=== PATIENT | female | born 1995 | race Caucasian/White ===

== ENCOUNTER 2017-06-13 15:27 | Inpatient (IN) | payer BC, OTHER ==
[~2017-06-13] VITALS: Ht 160 cm; Wt 53.1 kg
[2017-06-13] MEDS ORDERED: ONDANSETRON 4 MG/2 ML VIAL IM PRN (16:30)
[2017-06-13] MEDS ORDERED: CLONIDINE HCL 0.1 MG TABLET PO PRN (16:30)
[2017-06-13] MEDS ORDERED: LOPERAMIDE HCL 2 MG CAPSULE PO PRN ×2 (16:30)
[2017-06-13] MEDS ORDERED: MIRALAX 17 GM POWD.PACK PO PRN (16:30)
[2017-06-13] MEDS ORDERED: DICYCLOMINE HCL 20 MG TABLET PO PRN (16:30)
[2017-06-13] MEDS ORDERED: LORAZEPAM 2 MG/1 ML VIAL IM PRN (16:30)
[2017-06-13] MEDS ORDERED: LORAZEPAM 1 MG TABLET PO PRN ×2 (16:30)
[2017-06-13] MEDS ORDERED: ONDANSETRON ODT 4 MG TAB.RAPDIS SL PRN (16:30)
[2017-06-13] MEDS ORDERED: PROMETHAZINE HCL 25 MG TABLET PO PRN (16:30)
[2017-06-13] MEDS ORDERED: MAG HYDROX/AL HYDROX/SIMETH 30 ML LIQUID UDC PO PRN (16:30)
[2017-06-13] MEDS ORDERED: MAGNESIUM HYDROXIDE 30 ML LIQUID UDC PO PRN (16:30)
[2017-06-13] MEDS: NEOMY/BACITRAC/POLYMI OINT 28.35 GM TUBE TOP SCH (17:00)
[2017-06-13 17:43] LABS: *URINE HCG, QUAL NEGATIVE (NEGATIVE)
[2017-06-13 17:57] LABS: *AMPHETAMINE, URINE POSITIVE (NEGATIVE); *BARBITURATE, URINE NEGATIVE (NEGATIVE); *CANNABINOID, URINE POSITIVE (NEGATIVE); *COCCAINE, URINE NEGATIVE (NEGATIVE); *OPIATE, URINE POSITIVE (NEGATIVE); *PHENCYCLIDINE SCREEN,URINE NEGATIVE (NEGATIVE)
[2017-06-13 20:00] VITALS: BP 102/60
[2017-06-13] MEDS: GABAPENTIN 300 MG CAPSULE PO SCH (21:00)
[2017-06-14] VITALS (8 sets, daily range): BP systolic 42–104; BP diastolic 43–64
[2017-06-14] MEDS: ACETAMINOPHEN 325 MG TABLET PO PRN ×2 (04:34→21:44)
[2017-06-14] MEDS: METHOCARBAMOL 750 MG TABLET PO PRN ×2 (04:34→21:44)
[2017-06-14] MEDS: BUPRENORPHINE HCL 2 MG TAB.SUBL SL PRN ×2 (04:34→11:24)
[2017-06-14] MEDS: BUPRENORPHINE HCL 2 MG TAB.SUBL SL SCH ×3 (09:00→21:45)
[2017-06-14] MEDS ORDERED: TUBERCULIN,PURIF.PROT.DERIV. 5 TU/0.1 ML TEST ID ONE (09:00)
[2017-06-14] MEDS: GABAPENTIN 300 MG CAPSULE PO SCH ×3 (09:30→21:44)
[2017-06-14] MEDS: MULTIVITAMINS,THERAPEUTIC TABLET PO SCH (09:30)
[2017-06-14] MEDS: FOLIC ACID 1 MG TABLET PO SCH (09:30)
[2017-06-14] MEDS: THIAMINE HCL 100 MG TABLET PO SCH (09:30)
[2017-06-14] MEDS: NEOMY/BACITRAC/POLYMI OINT 28.35 GM TUBE TOP SCH ×2 (09:37→17:00)
[2017-06-14 09:53] LABS: BASOPHILS % (AUTO) 0.2 % (0.0-2.0); EOSINOPHILS # (AUTO) 0.2 K/uL (0.0-0.7); EOSINOPHILS % (AUTO) 2.3 % (0.0-7.0); HEMATOCRIT 35.4 % (37-47); HEMOGLOBIN 11.9 G/DL (12.0-16.0); LYMPHOCYTES # (AUTO) 1.3 K/UL (0.8-4.8); LYMPHOCYTES % (AUTO) 16.1 % (20.5-74.5); MEAN CORPUSCULAR HEMOGLOBIN 28.1 UUG (27.0-31.0); MEAN CORPUSCULAR HGB CONC 34 g/dL (32.0-37.0); MEAN CORPUSCULAR VOLUME 83.8 FL (81.0-99.0); MONOCYTES # (AUTO) 0.6 K/UL (0.1-1.30); NEUTROPHILS # (AUTO) 5.7 K/UL (1.8-8.9); NEUTROPHILS % (AUTO) 73.4 % (31.5-64.5); PLATELET COUNT (AUTO) 311 K/UL (150-450); RED BLOOD CELL COUNT(AUTO) 4.23 MIL/UL (4.2-5.4); WHITE BLOOD COUNT (AUTO) 7.8 K/UL (4.0-11.2)
[2017-06-14 10:08] LABS: ETHANOL < 3 MG/DL (0-0)
[2017-06-14 10:11] LABS: ALANINE AMINOTRANSFERASE 21 U/L (14-59); ALKALINE PHOSPHATASE 88 U/L (50-136); ASPARTATE AMINOTRANSFERASE 19 U/L (15-37); BILIRUBIN,TOTAL 0.5 mg/dL (0.2-1.0); CARBON DIOXIDE 29 mmol/L (21-32); CHLORIDE 103 mmol/L (98-107); CREATININE 0.8 mg/dL (0.6-1.3); GLUCOSE 122 mg/dL (74-106); MAGNESIUM 1.9 mg/dL (1.8-2.4); TOTAL PROTEIN, SERUM 6.6 g/dL (6.4-8.2); UREA NITROGEN, BLOOD 4 mg/dL (7-18)
[2017-06-14] MEDS: risperiDONE 0.5 MG TABLET PO SCH ×2 (12:40→21:44)
[2017-06-14] MEDS ORDERED: BUPRENORPHINE HCL 2 MG TAB.SUBL SL PRN (18:00)
[2017-06-14] MEDS ORDERED: LORAZEPAM 1 MG TABLET PO PRN (18:00)
[2017-06-14] MEDS: LAMOTRIGINE 25 MG TABLET PO SCH (21:44)
[2017-06-15] VITALS: BP 100/57
[2017-06-15 04:00] VITALS: BP 93/58
[2017-06-15 08:00] VITALS: BP 102/62
[2017-06-15 08:06] LABS: HEPATITIS B SURFACE AG Negative (Negative)
[2017-06-15] MEDS ORDERED: BUPRENORPHINE HCL 2 MG TAB.SUBL SL SCH (09:00)
[2017-06-15] MEDS: risperiDONE 0.5 MG TABLET PO SCH ×2 (09:22→21:49)
[2017-06-15] MEDS: THIAMINE HCL 100 MG TABLET PO SCH (09:22)
[2017-06-15] MEDS: NEOMY/BACITRAC/POLYMI OINT 28.35 GM TUBE TOP SCH ×2 (09:22→16:53)
[2017-06-15] MEDS: MULTIVITAMINS,THERAPEUTIC TABLET PO SCH (09:22)
[2017-06-15] MEDS: FOLIC ACID 1 MG TABLET PO SCH (09:22)
[2017-06-15] MEDS: GABAPENTIN 300 MG CAPSULE PO SCH ×3 (09:22→21:49)
[2017-06-15 12:00] VITALS: BP 109/55
[2017-06-15] MEDS ORDERED: BENZONATATE 100 MG CAPSULE PO PRN (12:45)
[2017-06-15] MEDS ORDERED: BENZOCAINE/MENTH/CETYLPYRD LOZENGE MM PRN (12:45)
[2017-06-15] MEDS: BUPRENORPHINE HCL 2 MG TAB.SUBL SL SCH ×2 (14:33→21:49)
[2017-06-15] MEDS: BENZONATATE 100 MG CAPSULE PO PRN ×2 (15:13→21:49)
[2017-06-15] MEDS: IBUPROFEN 600 MG TABLET PO PRN (15:13)
[2017-06-15 16:00] VITALS: BP 111/54
[2017-06-15 20:00] VITALS: BP 105/58
[2017-06-15] MEDS: diphenhydrAMINE 50 MG CAPSULE PO PRN (21:48)
[2017-06-15] MEDS: LAMOTRIGINE 25 MG TABLET PO SCH (21:49)
[2017-06-15] MEDS: ACETAMINOPHEN 325 MG TABLET PO PRN (21:49)
[2017-06-15] MEDS: LORAZEPAM 1 MG TABLET PO PRN (21:49)
[2017-06-16] VITALS: BP 116/73
[2017-06-16] MEDS: LORAZEPAM 1 MG TABLET PO PRN ×3 (01:38→22:12)
[2017-06-16 04:00] VITALS: BP 112/69
[2017-06-16 08:00] VITALS: BP 114/65
[2017-06-16] MEDS: FOLIC ACID 1 MG TABLET PO SCH (09:15)
[2017-06-16] MEDS: GABAPENTIN 300 MG CAPSULE PO SCH ×3 (09:15→20:25)
[2017-06-16] MEDS: MULTIVITAMINS,THERAPEUTIC TABLET PO SCH (09:15)
[2017-06-16] MEDS: THIAMINE HCL 100 MG TABLET PO SCH (09:15)
[2017-06-16] MEDS: risperiDONE 0.5 MG TABLET PO SCH ×2 (09:15→20:24)
[2017-06-16] MEDS: BUPRENORPHINE HCL 2 MG TAB.SUBL SL SCH ×3 (09:16→20:24)
[2017-06-16] MEDS: NEOMY/BACITRAC/POLYMI OINT 28.35 GM TUBE TOP SCH ×2 (09:16→16:57)
[2017-06-16 12:00] VITALS: BP 124/70
[2017-06-16] MEDS: IBUPROFEN 600 MG TABLET PO PRN ×2 (12:41→22:12)
[2017-06-16] MEDS ORDERED: HYDROXYZINE PAMOATE 25 MG CAPSULE PO PRN (14:30)
[2017-06-16 16:00] VITALS: BP 120/65
[2017-06-16 20:00] VITALS: BP 124/70
[2017-06-16] MEDS: LAMOTRIGINE 25 MG TABLET PO SCH (20:22)
[2017-06-16] MEDS: METHOCARBAMOL 750 MG TABLET PO PRN (20:25)
[2017-06-16] MEDS: CLONIDINE HCL 0.1 MG TABLET PO SCH (20:25)
[2017-06-16] MEDS ORDERED: KETOROLAC TROMETHAMINE 30 MG INJ IM PRN (21:00)
[2017-06-16] MEDS: diphenhydrAMINE 50 MG CAPSULE PO PRN (22:12)
[2017-06-17] VITALS: BP 92/58
[2017-06-17 04:00] VITALS: BP 107/57
[2017-06-17 08:00] VITALS: BP 115/78
[2017-06-17] MEDS ORDERED: BUPRENORPHINE HCL 2 MG TAB.SUBL SL SCH (09:00)
[2017-06-17] MEDS: NEOMY/BACITRAC/POLYMI OINT 28.35 GM TUBE TOP SCH ×2 (09:36→16:21)
[2017-06-17] MEDS: THIAMINE HCL 100 MG TABLET PO SCH (09:38)
[2017-06-17] MEDS: MULTIVITAMINS,THERAPEUTIC TABLET PO SCH (09:38)
[2017-06-17] MEDS: GABAPENTIN 300 MG CAPSULE PO SCH ×3 (09:38→21:10)
[2017-06-17] MEDS: risperiDONE 0.5 MG TABLET PO SCH ×2 (09:38→21:10)
[2017-06-17] MEDS: CLONIDINE HCL 0.1 MG TABLET PO SCH ×2 (09:39→21:11)
[2017-06-17] MEDS: FOLIC ACID 1 MG TABLET PO SCH (09:39)
[2017-06-17 12:00] VITALS: BP 97/62
[2017-06-17] MEDS: IBUPROFEN 600 MG TABLET PO PRN ×2 (14:28→22:22)
[2017-06-17] MEDS ORDERED: AZITHROMYCIN 250 MG TABLET PO ONE (15:00)
[2017-06-17] MEDS ORDERED: CLONIDINE HCL 0.1 MG TABLET PO SCH (15:00)
[2017-06-17 16:00] VITALS: BP 106/59
[2017-06-17 20:00] VITALS: BP 105/70
[2017-06-17] MEDS ORDERED: DIPH50CA37 PO (20:13)
[2017-06-17] MEDS ORDERED: DICY20TA28 PO (20:13)
[2017-06-17] MEDS ORDERED: LAMO25TA5 PO (20:13)
[2017-06-17] MEDS ORDERED: AZIT250T6 PO (20:13)
[2017-06-17] MEDS ORDERED: GABA-534 PO (20:13)
[2017-06-17] MEDS ORDERED: HYDR-3895 PO (20:13)
[2017-06-17] MEDS ORDERED: IBUP-1955 PO (20:13)
[2017-06-17] MEDS ORDERED: CLON0.1T14 PO (20:13)
[2017-06-17] MEDS ORDERED: RISP0.5T5 PO (20:13)
[2017-06-17] MEDS ORDERED: METH-406 PO (20:13)
[2017-06-17] MEDS: METHOCARBAMOL 750 MG TABLET PO PRN (21:09)
[2017-06-17] MEDS: LAMOTRIGINE 25 MG TABLET PO SCH (21:09)
[2017-06-17] MEDS: diphenhydrAMINE 50 MG CAPSULE PO PRN (22:22)
[2017-06-18] MEDS: IBUPROFEN 600 MG TABLET PO PRN ×2 (04:46→11:00)
[2017-06-18 08:00] VITALS: BP 92/48
[2017-06-18] MEDS ORDERED: AZITHROMYCIN 250 MG TABLET PO SCH (09:00)
[2017-06-18 09:55] VITALS: BP 113/64
[2017-06-18] MEDS: CLONIDINE HCL 0.1 MG TABLET PO SCH (09:55)
[2017-06-18] MEDS: FOLIC ACID 1 MG TABLET PO SCH (09:56)
[2017-06-18] MEDS: GABAPENTIN 300 MG CAPSULE PO SCH (09:56)
[2017-06-18] MEDS: MULTIVITAMINS,THERAPEUTIC TABLET PO SCH (09:56)
[2017-06-18] MEDS: risperiDONE 0.5 MG TABLET PO SCH (09:56)
[2017-06-18] MEDS: THIAMINE HCL 100 MG TABLET PO SCH (09:57)
[2017-06-18] MEDS: NEOMY/BACITRAC/POLYMI OINT 28.35 GM TUBE TOP SCH (09:57)
== END 2017-06-18 12:30 | DRG 895 ==
LOC: SRC 16:05
PROVIDERS: ADMIT Internal Medicine; ATTEND Internal Medicine
PROC: HZ2ZZZZ Detoxification Services for Substance Abuse Treatment (ICD-10-PCS; principal; 2017-06-13)
PROC: HZ31ZZZ Individual Counseling for Substance Abuse Treatment, Behavioral (ICD-10-PCS; 2017-06-15)
DX: F11.23 Opioid dependence with withdrawal (principal); F25.0 Schizoaffective disorder, bipolar type; F10.10 Alcohol abuse, uncomplicated; Y90.9 Presence of alcohol in blood, level not specified; Z81.8 Family history of other mental and behavioral disorders; F17.210 Nicotine dependence, cigarettes, uncomplicated; Z59.0 Homelessness; D64.9 Anemia, unspecified; Z59.1 Inadequate housing; F15.23 Other stimulant dependence with withdrawal; F13.230 Sedative, hypnotic or anxiolytic dependence with withdrawal, uncomplicated; J20.9 Acute bronchitis, unspecified
CPT/HCPCS: 36415; 71010; 80307; 80324; 80346; 80349; 80361; 83735; 84703; 85025; 86580; 86592; 86705; 86803; 87340; 87806; G0480; Q0144; Q0163